=== PATIENT | male | born 1990 ===

== ENCOUNTER 2018-03-03 22:22 | Emergency (ER) | payer SELFPAY ==
[2018-03-03 22:24] VITALS: BP 128/97
--- NOTE | 2018-03-03 22:24 | ER Report ---
History and Physical Time Seen By MD: 22:24 HPI/ROS CHIEF COMPLAINT: Toothache HISTORY OF PRESENT ILLNESS: 28-year-old male presents ambulatory to the ER complaining of jaw swelling and tooth pain. Having increased pain for 2-3 days. She notes no difficulty swallowing or breathing. Patient notes no fever or chills. Patient notes nausea and vomiting secondary to the pain. REVIEW OF SYSTEMS: Respiratory: No cough, no dyspnea. Cardiovascular: No chest pain, no palpitations. Gastrointestinal: No vomiting, no abdominal pain. Musculoskeletal: No back pain. Allergies: Coded Allergies: No Known Drug Allergies (Unverified , 03/03/18) Home Meds Active Scripts Promethazine Hcl (PROMETHAZINE HCL) 25 Mg Tablet, 25 MG PO Q4H Y for NAUSEA/ VOMITING, #14 TAB Prov:FABIAN MARTINEZ DO 03/03/18 Oxycodone Hcl/Acetaminophen (PERCOCET 5-325 MG TABLET) 1 Each Tablet, 1 EACH PO Q4-6H Y for PAIN, #12 Prov:FABIAN MARTINEZ DO 03/03/18 Amoxicillin 500 Mg Tab (AMOXICILLIN 500 MG TAB) 500 Mg Tablet, 1 TAB PO Q8H for infection, #30 TAB Prov:FABIAN MARTINEZ DO 03/03/18 Reviewed Nurses Notes: Yes Old Medical Records Reviewed: Yes Constitutional Vital Sign - Last 24 Hours 03/03/18 22:24 Temp 98.8 Pulse 76 Resp 18 B/P (MAP) 128/97 Pulse Ox 96 O2 Delivery Room Air Physical Exam General Appearance: The patient is alert, has no immediate need for airway protection and no current signs of toxicity. Vital signs stable, afebrile, pulse ox normal HEENT: Pupils equal and round no injection. Oropharynx shows tooth with advanced caries in the left lower jaw tooth #18 Respiratory: Chest is non tender, lungs are clear to auscultation. Cardiac: regular rate and rhythm Gastrointestinal: Abdomen is soft and non tender, no masses, bowel sounds normal. Musculoskeletal: Neck: Neck is supple and non tender. No lymphadenopathy, no induration of neck tissues Extremities have full range of motion and are non tender. Skin: No rashes or lesions. DIFFERENTIAL DIAGNOSIS: After history and physical exam differential diagnosis was considered for toothache, tooth abscess, Dieudonne myelitis of the jaw, lymphadenitis, pharyngitis Medical Decision Making ED Course/Re-evaluation ED Course Patient was admitted to an examination room. H&P was done. The differential diagnoses was considered. On clinical examination. Patient has findings consistent with a tooth abscess. He'll be treated with amoxicillin. He'll be given Phenergan for his nausea, oxycodone for his pain. He is advised to follow -up with a dentist as soon as possible. Decision to Disposition Date: Mar 03, 2018 Decision to Disposition Time: 22:33 Depart Departure Latest Vital Signs Vital Signs Date Time Temp Pulse Resp B/P (MAP) Pulse Ox O2 Delivery O2 Flow Rate FiO2 03/03/18 22:24 98.8 76 18 128/97 96 Room Air Impression: Primary Impression: Tooth abscess Condition: Improved Disposition: HOME OR SELF-CARE New Scripts Promethazine Hcl (PROMETHAZINE HCL) 25 Mg Tablet 25 MG PO Q4H Y for NAUSEA/VOMITING, #14 TAB Prov: FABIAN MARTINEZ DO 03/03/18 Oxycodone Hcl/Acetaminophen (PERCOCET 5-325 MG TABLET) 1 Each Tablet 1 EACH PO Q4-6H Y for PAIN, #12 Prov: FABIAN MARTINEZ DO 03/03/18 Amoxicillin 500 Mg Tab (AMOXICILLIN 500 MG TAB) 500 Mg Tablet 1 TAB PO Q8H for infection, #30 TAB Prov: FABIAN MARTINEZ DO 03/03/18 Patient Instructions: Dental Abscess (ED) Additional Instructions: Take ibuprofen 200 mg 3-4 tablets 3 times a day with food Apply hot compresses to your left jaw area Follow-up with the [facility] for referral to a dentist FABIAN MARTINEZ DO Mar 03, 2018 22:24
[2018-03-03] MEDS ORDERED: AMOX500T10 PO (22:35)
[2018-03-03] MEDS ORDERED: OXYC-865 PO (22:35)
[2018-03-03] MEDS ORDERED: PROM-110 PO (22:35)
[2018-03-03] MEDS ORDERED: oxyCODONE/ACETAMIN 5/325MG TH 2 TAB/BOTTLE PO ONE (22:40)
[2018-03-03] MEDS ORDERED: PROMETHAZINE HCL 25 MG TAB TH 2 TAB/BOTTLE PO ONE (22:40)
[2018-03-03] MEDS ORDERED: AMOXICILLIN 500 MG CAP PO ONE (22:40)
== END 2018-03-03 23:02 | disposition home or self-care (01) ==
LOC: ER 22:30
DX: K04.7 Periapical abscess without sinus (principal)
CPT/HCPCS: 99283